=== PATIENT | female | born 1950 | race Two or more races ===

== ENCOUNTER 2024-12-17 12:33 | Emergency (ER) | payer OTHER ==
[~2024-12-17] VITALS: Ht 170.2 cm; Wt 73.5 kg
[~2024-12-17 12:33] MED LIST: AMBIEN5 MG; CLONAZEPAM1 MG; COZAAR50 MG; PROZAC20 MG; RANITIDINE HCL300 MG; RISPERDAL0.5 MG; SYNTHROID50 MCG
[2024-12-17 13:21] VITALS: BP 159/65; O2SAT 98
[2024-12-17] MEDS ORDERED: FAMOTIDINE/PF 20 MG in 0.9 % SODIUM CHLORIDE 8 ML IV PUSH STA (15:25)
[2024-12-17] MEDS ORDERED: KETOROLAC TROMETHAMINE 30 MG VIAL IV ONE (15:30)
[2024-12-17] MEDS ORDERED: LORazepam 2 MG/ML VIAL IM STA (15:34)
[2024-12-17] MEDS ORDERED: KETOROLAC TROMETHAMINE 30 MG VIAL ONE (15:42)
[2024-12-17] MEDS ORDERED: FAMOTIDINE/PF 20 MG/2 ML VIAL ONE (15:43)
[2024-12-17] MEDS ORDERED: LORazepam 2 MG/ML DISP.SYRIN ONE (15:52)
[2024-12-17 16:18] LABS: HEMATOCRIT 39.1 % (36.0-45.00); MEAN CELL VOLUME 95.7 fL (80.00-100.00); MEAN CORPUSCULAR HEMOGLOBIN 31.8 pg (27.00-32.0); MEAN CORPUSCULAR HGB CONC 33.2 g/dl (32.0-36.0); PLATELET COUNT 482 K/uL (150-450); RED BLOOD COUNT 4.09 M/uL (4.00-6.00); RED CELL DISTRIBUTION WIDTH 13.7 % (11.5-14.5)
[2024-12-17 16:36] LABS: URINE APPEARANCE Cloudy; URINE BILIRRUBIN Negative (NEGATIVE); URINE BLOOD Moderate; URINE COLOR Yellow; URINE GLUCOSE Negative (NEGATIVE); URINE KETONE Negative (NEGATIVE); URINE LEUKOCYTE Negative; URINE NITRATE Negative; URINE PROTEIN Negative (NEGATIVE); URINE UROBILINOGEN 0.2 E.U./dl
[2024-12-17 16:39] LABS: URINE EPITHELIAL CELLS 2.3 uL (0.0-38.8); URINE RBC 126.2 uL (0.0-20.8); URINE WBC 2.3 uL (0.0-23.2)
[2024-12-17 16:46] LABS: CREATININE SERUM 0.72 mg/dL (0.55-1.02); GFR 79.18; POTASSIUM 3.63 mEq/L (3.5-5.1)
[2024-12-17] MEDS ORDERED: ANALPRAM HC 2.530 GM RECTAL (20:26)
== END 2024-12-17 20:41 | disposition home or self-care (01) ==
LOC: ER 12:35
PROVIDERS: Emergency Medicine
DX: K62.5 Hemorrhage of anus and rectum (principal); F41.8 Other specified anxiety disorders; I10 Essential (primary) hypertension; Z85.3 Personal history of malignant neoplasm of breast; K57.30 Diverticulosis of large intestine without perforation or abscess without bleeding
CPT/HCPCS: 36415; 74177; 96365; 96372; 99284; J1885; J3490; Q9965